=== PATIENT | female | born 1980 | race Two or more races ===

== ENCOUNTER 2018-02-22 12:12 | Inpatient (IN) | payer OTHER ==
[~2018-02-22] VITALS: Ht 154.9 cm; Wt 71.9 kg
[2018-02-22 12:54] LABS: Basophils # (auto) 0.1 uL; Eosinophils # (auto) 0 uL; Lymphocytes # (auto) 0.6 uL; Monocytes # (auto) 0.4 uL; Neutrophils # (auto) 14.6 uL; White Blood Cell 15.7 10^3/uL (4.4-10.8)
[2018-02-22 12:55] LABS: Basophils % (auto) 0.5 % (0.0-2.0); Hematocrit 35.6 % (36.0-46.0); Hemoglobin 11.3 g/dL (12.2-16.2); Lymphocytes % (auto) 3.7 % (10.0-50.0); Mean Corpuscular Hemoglobin 23.2 pg (28.0-32.0); Mean Corpuscular Hgb Conc. 31.8 g/dL (32.0-36.0); Mean Corpuscular Volume 72.9 fL (80.0-100.0); Monocytes % (auto) 2.6 % (0.0-12.0); Neutrophils % (auto) 93.2 % (37.0-80.0); Platelet Count (auto) 430 10^3/uL (140-450); Red Blood Cells 4.89 10^6/uL (4.0-5.20)
[2018-02-22 13:02] LABS: Red Cell Distribution Width 23.2 % (11.8-14.3)
[2018-02-22 13:11] LABS: Albumin 3.5 g/dL (3.4-5.0); BUN/Creatinine Ratio 9.7; Calcium 8.7 mg/dL (8.5-10.1); Potassium 4.2 mmol/L (3.5-5.1)
[2018-02-22 13:14] LABS: Bilirubin, Total 0.3 mg/dL (0.2-1.0); Total Protein 8.5 g/dL (6.4-8.2)
[2018-02-22] MEDS ORDERED: SODIUM CHLORIDE 0.9% 1,000 ML IV ONE (13:19)
[2018-02-22] MEDS ORDERED: PROMETHAZINE HCL 25 MG/ML 1ML IV PRN ×2 (13:30→15:30)
[2018-02-22] MEDS ORDERED: MORPHINE SULFATE 8mg/ml INJ SDV IV PRN ×2 (13:30→17:45)
[2018-02-22 13:45] LABS: Magnesium 1.8 mg/dL (1.6-2.6)
[2018-02-22] MEDS ORDERED: KETOROLAC TROMETH 30 MG/ML 1ML VIAL IV ONE (13:45)
[2018-02-22] MEDS ORDERED: cefTRIAXone 1GM/10ml IVPUSH 10 ML IV ONE (15:00)
[2018-02-22 15:24] LABS: Urine Bacteria MOD /hpf (None Seen); Urine Blood 1+ /uL (Negative); Urine Mucus FEW (None Seen); Urine Specific Gravity 1.013 (1.001-1.035); Urine WBC 99 /hpf (0 - 5)
[2018-02-22] MEDS ORDERED: HYDROcodone-ACET 5/325MG TAB PO PRN (15:30)
[2018-02-22] MEDS ORDERED: LORazepam 0.5 MG TAB PO PRN (15:30)
[2018-02-22] MEDS ORDERED: MORPHINE SULFATE 4 MG/ML SYR/VIAL IV PRN ×2 (15:30)
[2018-02-22] MEDS ORDERED: TEMAZEPAM 15 MG CAP PO PRN (15:30)
[2018-02-22] MEDS ORDERED: NITROGLYCERIN 0.4 MG SL TAB SL PRN (15:30)
[2018-02-22 16:17] LABS: INR 0.88 (0.9-1.15); Partial Thromboplastin Time 25.9 sec (23.78-33.04); Prothrombin Time 9.5 sec (9.27-12.13)
[2018-02-22] MEDS: SODIUM CHLORIDE 0.9% 1,000 ML IV SCH (18:00)
[2018-02-22 18:20] VITALS: BP 124/78
[2018-02-22 18:28] VITALS: BP 124/78
[2018-02-22 20:00] VITALS: BP 101/62
[2018-02-22] MEDS: MORPHINE SULFATE 8mg/ml INJ SDV IV PRN (21:30)
[2018-02-22] MEDS: FAMOTIDINE 20 MG TAB PO SCH (21:30)
[2018-02-22 22:00] VITALS: BP 101/62
[2018-02-23] VITALS (7 sets, daily range): BP systolic 112–134; BP diastolic 63–88
[2018-02-23] MEDS: SODIUM CHLORIDE 0.9% 1,000 ML IV SCH ×3 (01:32→17:23)
[2018-02-23 05:53] LABS: Basophils # (auto) 0 uL; Basophils % (auto) 0.2 % (0.0-2.0); Eosinophils # (auto) 0.1 uL; Monocytes # (auto) 0.8 uL; Nucleated Red Blood Cells % 0.1 %; White Blood Cell 13.8 10^3/uL (4.4-10.8)
[2018-02-23 05:58] LABS: Eosinophils % (auto) 0.5 % (0.0-7.0); Hematocrit 32.7 % (36.0-46.0); Hemoglobin 10.3 g/dL (12.2-16.2); Lymphocytes # (auto) 1.3 uL; Lymphocytes % (auto) 9.3 % (10.0-50.0); Mean Corpuscular Hemoglobin 23.4 pg (28.0-32.0); Mean Corpuscular Hgb Conc. 31.4 g/dL (32.0-36.0); Mean Corpuscular Volume 74.4 fL (80.0-100.0); Monocytes % (auto) 5.9 % (0.0-12.0); Neutrophils # (auto) 11.6 uL; Neutrophils % (auto) 84.1 % (37.0-80.0); Platelet Count (auto) 367 10^3/uL (140-450); Red Blood Cells 4.39 10^6/uL (4.0-5.20)
[2018-02-23 06:01] LABS: Red Cell Distribution Width 23.2 % (11.8-14.3)
[2018-02-23] MEDS: FAMOTIDINE 20 MG TAB PO SCH ×2 (09:41→21:47)
[2018-02-23] MEDS: cefTRIAXone 1GM/10ml IVPUSH 10 ML IV SCH (09:41)
[2018-02-23] MEDS: MORPHINE SULFATE 8mg/ml INJ SDV IV PRN (09:41)
[2018-02-23] MEDS ORDERED: MANNITOL 20 % (20GM/100ML) 62.5 ML IV ONE (12:00)
[2018-02-23] MEDS ORDERED: TAMSULOSIN HYDROCHLORIDE 0.4 MG CAP PO SCH (18:00)
[2018-02-23] MEDS: ACETAMINOPHEN 500 MG TAB PO PRN (21:18)
[2018-02-24] VITALS (7 sets, daily range): BP systolic 109–125; BP diastolic 64–76
[2018-02-24] MEDS: ACETAMINOPHEN 500 MG TAB PO PRN ×2 (05:58→19:59)
[2018-02-24 06:02] LABS: Basophils # (auto) 0 uL; Basophils % (auto) 0.3 % (0.0-2.0); Eosinophils # (auto) 0.1 uL; Eosinophils % (auto) 0.8 % (0.0-7.0); Lymphocytes # (auto) 1.3 uL; Monocytes # (auto) 1.1 uL; Monocytes % (auto) 8.2 % (0.0-12.0)
[2018-02-24 06:11] LABS: Calcium 8.5 mg/dL (8.5-10.1); Potassium 3.3 mmol/L (3.5-5.1)
[2018-02-24 06:12] LABS: Hematocrit 32.1 % (36.0-46.0); Hemoglobin 10.2 g/dL (12.2-16.2); Lymphocytes % (auto) 10.1 % (10.0-50.0); Mean Corpuscular Hemoglobin 23.2 pg (28.0-32.0); Mean Corpuscular Hgb Conc. 31.8 g/dL (32.0-36.0); Neutrophils # (auto) 10.6 uL; Neutrophils % (auto) 80.6 % (37.0-80.0); Platelet Count (auto) 351 10^3/uL (140-450); Red Blood Cells 4.39 10^6/uL (4.0-5.20); White Blood Cell 13.2 10^3/uL (4.4-10.8)
[2018-02-24 06:14] LABS: Red Cell Distribution Width 23.3 % (11.8-14.3)
[2018-02-24] MEDS: FAMOTIDINE 20 MG TAB PO SCH ×2 (08:51→21:06)
[2018-02-24] MEDS: cefTRIAXone 1GM/10ml IVPUSH 10 ML IV SCH (08:57)
[2018-02-24] MEDS ORDERED: ONDANSETRON HCL 4 MG/2 ML VIAL ONE (09:56)
[2018-02-24] MEDS ORDERED: fentaNYL CITRATE 100 MCG/2 ML VL ONE (09:56)
[2018-02-24] MEDS ORDERED: SODIUM CHLORIDE LOCK 10 ML ONE (09:56)
[2018-02-24] MEDS ORDERED: PROPOFOL 10 MG/ML 20 ML IV ONE ×2 (09:56→11:32)
[2018-02-24] MEDS ORDERED: MIDAZOLAM HCL 1MG/1ML-2 ML VIAL ONE (09:56)
[2018-02-24] MEDS: SODIUM CHLORIDE 0.9% 1,000 ML IV SCH ×2 (10:11→14:54)
[2018-02-24] MEDS ORDERED: MORPHINE SULFATE 8mg/ml INJ SDV IV PRN (12:00)
[2018-02-24] MEDS ORDERED: KETOROLAC TROMETH 30 MG/ML 1ML VIAL IV ONE (12:00)
[2018-02-24] MEDS ORDERED: METOCLOPRAMIDE HCL 5MG/ml INJ 2ml VIAL IV ONE (12:00)
[2018-02-24] MEDS ORDERED: POTASSIUM CHL 20 Meq TABLET PO ONE (13:15)
[2018-02-24] MEDS: MORPHINE SULFATE 8mg/ml INJ SDV IV PRN (21:27)
[2018-02-25] MEDS: SODIUM CHLORIDE 0.9% 1,000 ML IV SCH ×2 (01:49→10:34)
[2018-02-25 04:38] VITALS: BP 121/73
[2018-02-25 07:14] LABS: Basophils # (auto) 0.1 uL; Basophils % (auto) 0.4 % (0.0-2.0); Eosinophils # (auto) 0.1 uL; Eosinophils % (auto) 0.8 % (0.0-7.0); White Blood Cell 14.8 10^3/uL (4.4-10.8)
[2018-02-25 07:21] LABS: Hematocrit 32.1 % (36.0-46.0); Hemoglobin 10.2 g/dL (12.2-16.2); Lymphocytes % (auto) 13.4 % (10.0-50.0); Mean Corpuscular Hemoglobin 23.3 pg (28.0-32.0); Mean Corpuscular Hgb Conc. 31.7 g/dL (32.0-36.0); Mean Corpuscular Volume 73.4 fL (80.0-100.0); Monocytes # (auto) 1.2 uL; Monocytes % (auto) 7.8 % (0.0-12.0); Neutrophils # (auto) 11.5 uL; Neutrophils % (auto) 77.6 % (37.0-80.0); Platelet Count (auto) 385 10^3/uL (140-450); Red Blood Cells 4.37 10^6/uL (4.0-5.20)
[2018-02-25 07:28] LABS: Red Cell Distribution Width 22.6 % (11.8-14.3)
[2018-02-25 07:31] LABS: BUN/Creatinine Ratio 7.3; Calcium 8.1 mg/dL (8.5-10.1); Potassium 3.4 mmol/L (3.5-5.1)
[2018-02-25] MEDS: FAMOTIDINE 20 MG TAB PO SCH (08:56)
[2018-02-25] MEDS: cefTRIAXone 1GM/10ml IVPUSH 10 ML IV SCH (08:57)
[2018-02-25 09:00] VITALS: BP 110/69
[2018-02-25 13:00] VITALS: BP 105/56
[2018-02-25 16:12] VITALS: BP 99/61
[2018-02-25 17:00] VITALS: BP 104/70
== END 2018-02-25 16:40 | disposition home or self-care (01) | DRG 872 ==
LOC: ER 12:12 → TELE 12:13 → TELE-WESTW 17:36 → WEST WING 02-24 00:17
PROVIDERS: ADMIT Internal Medicine; ATTEND Internal Medicine
PROC: 0T768DZ Dilation of Right Ureter with Intraluminal Device, Via Natural or Artificial Opening Endoscopic (ICD-10-PCS; 2018-02-22)
PROC: 0TF6XZZ Fragmentation in Right Ureter, External Approach (ICD-10-PCS; principal; 2018-02-24 10:15)
DX: A41.9 Sepsis, unspecified organism (principal); Z93.6 Other artificial openings of urinary tract status; N13.6 Pyonephrosis; B96.20 Unspecified Escherichia coli [E. coli] as the cause of diseases classified elsewhere; F41.9 Anxiety disorder, unspecified; G47.00 Insomnia, unspecified
CPT/HCPCS: 36415; 74176; 80048; 80053; 81001; 83690; 83735; 84702; 85025; 85610; 85730; 87081; 87086; 87088; 87186; 93306; 96361; 96374; 96375; J1885; J2250; J2270; J2405; J2704

== ENCOUNTER 2019-09-08 02:07 | Inpatient (IN) | payer MEDICAID, OTHER ==
[~2019-09-08] VITALS: Ht 154.9 cm; Wt 71.6 kg
[2019-09-08 03:21] LABS: Urine Bacteria MANY /hpf (None Seen); Urine Blood TRACE /uL (Negative); Urine Mucus FEW (None Seen); Urine Specific Gravity 1.017 (1.001-1.035); Urine WBC 143 /hpf (0 - 5)
[2019-09-08 03:35] LABS: Eosinophils # (auto) 0 uL; Eosinophils % (auto) 0.1 % (0.0-7.0); Lymphocytes # (auto) 0.7 uL; Lymphocytes % (auto) 3.7 % (10.0-50.0); White Blood Cell 18.2 10^3/uL (4.4-10.8)
[2019-09-08 03:37] LABS: Basophils # (auto) 0.1 uL; Basophils % (auto) 0.3 % (0.0-2.0); Hemoglobin 10.4 g/dL (12.2-16.2); Mean Corpuscular Hemoglobin 20.8 pg (28.0-32.0); Mean Corpuscular Hgb Conc. 30.6 g/dL (32.0-36.0); Mean Corpuscular Volume 67.7 fL (80.0-100.0); Monocytes % (auto) 5.4 % (0.0-12.0); Neutrophils # (auto) 16.5 uL; Neutrophils % (auto) 90.5 % (37.0-80.0); Platelet Count (auto) 374 10^3/uL (140-450); Red Blood Cells 5.03 10^6/uL (4.0-5.20); Red Cell Distribution Width 16.7 % (11.8-14.3)
[2019-09-08 03:56] LABS: Albumin 3.6 g/dL (3.4-5.0); BUN/Creatinine Ratio 14.1; Calcium 8.3 mg/dL (8.5-10.1); Potassium 3.4 mmol/L (3.5-5.1)
[2019-09-08 03:59] LABS: Bilirubin, Total 0.3 mg/dL (0.2-1.0); Total Protein 8.7 g/dL (6.4-8.2)
[2019-09-08] MEDS ORDERED: SODIUM CHLORIDE 0.9% 1,000 ML IVB ONE (08:08)
[2019-09-08] MEDS ORDERED: cefTRIAXone 1GM/50ML D5W 50 ML IV ONE (08:15)
[2019-09-08] MEDS ORDERED: METOCLOPRAMIDE HCL 5MG/ml INJ 2ml VIAL IV ONE (10:15)
[2019-09-08] MEDS ORDERED: KETOROLAC TROMETH 30 MG/ML 1ML VIAL IV ONE (10:15)
[2019-09-08] MEDS ORDERED: ACETAMINOPHEN 500 MG TAB PO PRN (11:30)
[2019-09-08] MEDS ORDERED: NITROGLYCERIN 0.4 MG SL TAB SL PRN (11:30)
[2019-09-08] MEDS ORDERED: PROMETHAZINE HCL 25 MG/ML 1ML IV PRN (11:30)
[2019-09-08] MEDS ORDERED: traMADol HCL 50 MG TAB PO PRN (11:30)
[2019-09-08] MEDS ORDERED: KETOROLAC TROMETH 30 MG/ML 1ML VIAL IV PRN (11:30)
[2019-09-08] MEDS ORDERED: MORPHINE SULF INJ 2 MG/ML SYRINGE 1ML IV PRN (11:30)
[2019-09-08] MEDS ORDERED: TEMAZEPAM 15 MG CAP PO PRN (11:30)
[2019-09-08] MEDS ORDERED: SODIUM CHLORIDE 0.9% 1,000 ML IV ONE (11:30)
[2019-09-08] MEDS: SOD CHL 0.9%/ KCL 40MEQ 1,000 ML IV SCH ×2 (13:50→19:50)
[2019-09-08] MEDS: metroNIDAZOLE 500MG/100ML 100 ML IV SCH ×2 (14:22→22:21)
--- NOTE | 2019-09-08 15:05 | NUR ---
MS admit from ER JENJEFFREY admitted to tele/MS after SBAR received. Patient oriented to MASON SIMON, RN primary RN, tele unit, lnta429, bed A, and unit policies regarding patient care and visiting hours. Patient weighed by bedscale and encouraged to call if they need something. All questions and concerns addressed, patient verbalized understanding.
--- NOTE | 2019-09-08 16:07 | NUR ---
PATIENT GIVEN BEDSIDE COMMODE FOR C/O URGENT DIARRHEA.
[2019-09-08 16:55] VITALS: BP 123/70
--- NOTE | 2019-09-08 19:19 | NUR ---
CARE ENDORSED TO JESSIE LINDSEY.
--- NOTE | 2019-09-08 20:02 | NUR ---
Opening shift note Patient is A&O x4. Currently on RA; no s/s of distress or SOB noted. Denies pain at this time. 22g IV in left wrist in intact and patent. Currently infusing fluids as ordered. POC discussed with patient who verbalizes understanding. Bed is in low locked position with side rails up x2. Call light is within reach. Will continue to monitor for changes PRN.
[2019-09-08 22:00] VITALS: BP 104/71
[2019-09-08] MEDS: FAMOTIDINE 20 MG TAB PO SCH (22:22)
--- NOTE | 2019-09-08 22:30 | NUR ---
Stool and urine samples sent to lab.
--- NOTE | 2019-09-09 01:08 | NUR ---
Mary Jo-care provided for episode of urinary incontinence and smear of soft brown BM. Urine is light yellow with strong odor. Patient cleansed and repositioned. Patient tolerates well. Bed returned to lowest position and bed alarm in place for patient safety. Addendum: 09/09/19 at 0112 by BR[place]NA [place] RN RN Disregard note. Wrong patient
[2019-09-09] MEDS: SOD CHL 0.9%/ KCL 40MEQ 1,000 ML IV SCH ×2 (04:03→12:30)
[2019-09-09] MEDS: metroNIDAZOLE 500MG/100ML 100 ML IV SCH ×2 (05:51→14:55)
[2019-09-09 06:00] VITALS: BP 104/61
--- NOTE | 2019-09-09 08:19 | NUR ---
OPENING SHIFT NOTE: PATIENT ASLEEP RESTING IN BED. BED IN LOWEST LOCKED POSITION. RESPIRATIONS EVEN AND UNLABORED. CALL LIGHT WITHIN REACH, FALL PRECAUTIONS IN PLACE. UPDATED CARE BOARD AND PATIENT WITH PLAN OF CARE. PATIENT VERBALIZED UNDERSTANDING.
[2019-09-09 08:47] VITALS: BP 108/58
[2019-09-09] MEDS ORDERED: cefTRIAXone 1GM/50ML D5W 50 ML IV SCH (09:00)
[2019-09-09] MEDS: FAMOTIDINE 20 MG TAB PO SCH (09:22)
[2019-09-09] MEDS ORDERED: ENOXAPARIN SOD 40 MG/0.4 ML SYRINGE SC SCH (10:00)
[2019-09-09 10:34] LABS: Basophils # (auto) 0 uL; Eosinophils # (auto) 0.2 uL; Hemoglobin 8.4 g/dL (12.2-16.2); Lymphocytes # (auto) 1.3 uL; Lymphocytes % (auto) 28.9 % (10.0-50.0); Mean Corpuscular Hemoglobin 21.3 pg (28.0-32.0); Mean Corpuscular Volume 68.7 fL (80.0-100.0); Monocytes # (auto) 0.6 uL; Neutrophils # (auto) 2.4 uL; Nucleated Red Blood Cells % 0.1 %; Red Cell Distribution Width 16.4 % (11.8-14.3)
[2019-09-09 10:36] LABS: Eosinophils % (auto) 3.8 % (0.0-7.0); Hematocrit 27.2 % (36.0-46.0); Mean Corpuscular Hgb Conc. 30.9 g/dL (32.0-36.0); Monocytes % (auto) 13.8 % (0.0-12.0); Neutrophils % (auto) 52.5 % (37.0-80.0); Platelet Count (auto) 275 10^3/uL (140-450); Red Blood Cells 3.95 10^6/uL (4.0-5.20); White Blood Cell 4.5 10^3/uL (4.4-10.8)
--- NOTE | 2019-09-09 11:29 | NUR ---
PATIENT EXPRESSED TO THIS RN SHE HAS AN APPOINTMENT AT 1400 TOMORROW WITH UROLOGIST IN [place]. SHE STATES SHE SEE UROLOGIST EVERY 6 MONTHS.
--- NOTE | 2019-09-09 12:30 | NUR ---
DR. RENY SONI: ADVANCE DIET, AND IF PATIENT TOLERATES WELL, CAN GO HOME TODAY. THIS RN AT BEDSIDE WITH MD, PATIENT VERBALIZED UNDERSTANDING.
[2019-09-09 12:43] VITALS: BP 107/66
--- NOTE | 2019-09-09 14:03 | NUR ---
PATIENT RECEIVED SOFT DIET, TOLERATING WELL SO FAR. EDUCATED PATIENT TO TAKE IT SLOW. PATIENT VERBALIZED UNDERSTANDING.
--- NOTE | 2019-09-09 14:53 | NUR ---
PATIENT DISCHARGED HOME. PATIENT LEFT WITH ALL BELONGINGS. ALL EDUCATION MATERIALS GIVEN TO PATIENT. IV DISCONTINUED, MANUAL PRESSURE APPLIED. TELE BOX CLEANED AND SENT TO TELE UNIT. ESCORTED OUT IN WHEELCHAIR TO PRIVATE AUTO BY THIS RN WITHOUT INCIDENCE.
== END 2019-09-09 14:50 | disposition home or self-care (01) | DRG 463 ==
LOC: ER 02:08 → TELE 02:09 → TELE-WESTW 15:13
PROVIDERS: ADMIT Internal Medicine; ATTEND Internal Medicine
DX: N13.6 Pyonephrosis (principal); J98.4 Other disorders of lung; K52.9 Noninfective gastroenteritis and colitis, unspecified; E87.6 Hypokalemia; R73.9 Hyperglycemia, unspecified; D64.9 Anemia, unspecified; N28.1 Cyst of kidney, acquired; E66.3 Overweight; Z87.442 Personal history of urinary calculi; Z68.29 Body mass index [BMI] 29.0-29.9, adult; Z98.51 Tubal ligation status
CPT/HCPCS: 36415; 71046; 74176; 80053; 81001; 82150; 83690; 83735; 84702; 85025; 85652; 87040; 87045; 87086; 87427; 87493; 96365; 96375; G0378; J0696; J1885; J3490